=== PATIENT | female | born 1935 | race Caucasian/White ===

== ENCOUNTER 2016-05-17 22:30 | Observation (INO) | payer MEDICARE, BC ==
[2016-05-17] MEDS ORDERED: NS 1,000 ML IV ONE (22:55)
--- NOTE | 2016-05-17 22:57 | EDPRACDOC ---
- General Information Chief Complaint: Generalized Weakness Stated Complaint: STROKE Time Seen by Provider: 05/17/16 22:45 Information Source: Patient Mode Of Arrival: Ambulance Home Medications: Home Medications Amlodipine [Norvasc] 10 mg PO DAILY 03/08/14 Fenofibrate [Tricor] 145 mg PO DAILY 03/08/14 POTASSIUM CHLORIDE Tablet [K-DUR 20 mEq Tablet*] 20 meq PO QHS 03/08/14 Rosuvastatin Calcium [Crestor] 10 mg PO QHS 03/08/14 Omeprazole Magnesium [Prilosec Otc] 20 mg PO DAILY 12/05/14 Donepezil HCl [Aricept] 5 mg PO DAILY 05/18/16 Doxycycline Hyclate [Morgidox] 100 mg PO .[id number] 05/18/16 Sertraline HCl [Zoloft] 25 mg PO DAILY 05/18/16 Allergies/Adverse Reactions: Allergies Allergy/AdvReac Type Severity Reaction Status Date / Time Penicillins Allergy Unknown Verified 05/18/16 11:30 - History of Present Illness Onset: 1 hour [employer] Exact Onset of Symptoms: Unknown Date Symptoms Started: 05/17/16 HPI: PATIENT STATES SHE HAS FELT WEAK ALL DAY. 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 UNKNOWN HOW LONG. ON WAKING SHE TRIED TO GET FAMILY AND COULD NOT WALK- COLLAPSED ONTO FAMILY. NO FEVER. NO N/V. COMPLAINS OF HEADACHE. DIARRHEA OVER LAST FEW DAYS Symptoms Started: Reports: Gradually Symptoms Description: Constant Weakness: Bilateral: Generalized Symptoms: Reports: Faintness, Syncope. Denies: Imbalance, Numbness Symptom Severity: Reports: Unable to performs ADL's Associated signs and symptoms:: Reports: Diarrhea ED Past Medical History - History Reviewed Yes Nurses notes reviewed and agree except as marked Travel Outside of [place] in the Last 3 Months?: No - Patient Medical History Neurological History: Reports: Dementia Cardiac History: Reports: Hypertension, Hypercholesterolemia GI/ History: Reports: Ulcer Musculoskeletal History: Reports: Arthritis (bilateral knees) Psychological History: Denies: Depression Systemic History: Reports: Anemia, Diabetes (diet controlled). Denies: Cancer Surgical History: Reports: Hysterectomy - Family Medical History Reports: Cancer (Father -lung), Cardiac Disorders (Mother). Denies: Hypertension, Stroke - Social Medical History Smoking Status: Never smoker ETOH: None Substance Abuse: None Lives With: Family Lives In: Home EDM Review of Systems - Review of Systems ROS Negative Except as Marked: Yes All systems reviewed and were negative except as marked Constitutional: No Symptoms Reported. negative: Fever, Chills, Weakness, Fatigue, Loss of Appetite Eyes: No Symptoms Reported. negative: Redness, Blurred Vision, Double Vision, Discharge, Pain, Light Sensitive, Photophobia Ears: No Symptoms Reported. negative: Pain, Hearing Loss, Drainage, Ear Pulling Throat: No Symptoms Reported. negative: Pain, Swelling Nose: No Symptoms Reported. negative: Congestion, Bleeding, Discharge, Injection, Swelling, Deformity, Ecchymosis, Tender, Abrasion, Laceration Mouth: No Symptoms Reported. negative: Pain, Drooling Respiratory: No Symptoms Reported. negative: Cough, Brassy Cough, Barky Cough, Shortness of Breath, Wheezing, Hemoptysis Cardiovascular: Syncope. negative: Chest Pain, Cyanosis, Edema, Orthopnea, Palpitations, PND, Skin Mottling Gastrointestinal: No Symptoms Reported. negative: Pain, Constipation, Nausea, Vomiting, Diarrhea, Melena, Formula Intolerance Genitourinary: No Symptoms Reported. negative: Dysuria, Hematuria, Frequency, Discharge, Bleeding, Testicular Pain, Neurological: No Symptoms Reported. negative: Headache, Dizziness, Seizure, Numbness, Weakness, Speech Difficulty, Gait Difficulty Musculoskeletal: No Symptoms Reported. negative: Neck, Chestwall, Ribs, Back, Shoulder, Arm, Elbow, Forearm, Wrist, Hand, Pelvis, Hip, Femur, Knee, Leg, Ankle , Foot Integumentary: No Symptoms Reported. negative: Itching, Rash, Bruising, Wound Allergic/Immunologic: No Symptoms Reported. negative: Hives, Itching Hematologic: No Symptoms Reported. negative: Lymphadenopathy, Easy Bruising, Easy Bleeding Endocrine: No Symptoms Reported. negative: Weight Gain, Weight Loss Psychiatric: No Symptoms Reported. negative: Anxiety, Depression, Hallucinations, Insomnia, Suicidal - Physical Exam Constitutional: Alert (Awake), Distress (MILD) Oriented to: Time, Person, Place Last recorded Vital Signs: Last Vital Signs Temp 97.5 F 05/17/16 22:34 Pulse 65 05/17/16 22:34 Resp 20 05/17/16 22:34 BP 173/77 05/17/16 22:34 Pulse Ox 99 05/17/16 22:34 Oxygen Pulse Oxygen Saturation 99 O2 Device Room Air Oxygen Flow Rate Fraction of Inspired Oxygen ( FIO2) - HEENT Head: Normal ( normocephalic) Eye Exam: Normal (PERRL, EOMI, Sclera white) Oropharynx: Normal (Pharynx:Moist without exudate,Gums-no swelling) Tympanic Membrane: Normal ENT EAC: Normal TMJ: Normal Nose: No Symptoms Reported (septum midline) Neck: Normal (FROM, trachea at midline) - Respiratory/Cardiovascular Respiratory: Normal - CTA (BBS clear to auscultation without adventitious sounds ) Cardiovascular: Normal (RRR without murmur, gallop or rub) - GI Auscultation: Normal (NABS) Palpation: Normal (Soft,No rebound or guarding, non distended) Tenderness: Non tender Morse's Sign: Negative - Musculoskeletal Back: Normal (Non-Tender) Extremities: Normal (Normal tone, Pulses 2+ No cyanosis or edema, FROM) - Integumentary Skin: Normal, Warm, Dry Lymphatics: Normal (no adenopathy) - Neurologic Memory Impaired: Normal Motor Function: Normal (Normal tone, Pulses 2+ No cyanosis or edema, FROM) Cranial Nerve: Normal (CN II-X11 intact sensation, strength 5/5) Cerebellar: Normal Mood Description: Normal Perception: Normal - Results 05/19/16 05:25 05/19/16 05:25 - EKG EKG #1 EKG Time: 23:17 -: Yes EKG interpreted by me Rate: bpm: 73 Powell: Normal Rhythm: NSR, PVCs Block: None Hypertrophy: None ST: Normal - Departure Yes I personally saw and evaluated the patient. Disposition: Admit IP To This Hospital Condition: Improved Final Diagnosis: Dehydration Syncope Qualifiers: Syncope type: unspecified Qualified Code(s): R55 - Syncope and collapse Diarrhea Qualifiers: Diarrhea type: presumed infectious Qualified Code(s): A09 - Infectious gastroenteritis and colitis, unspecified Education/Counseling Given To: Patient, Family Member Education/Counseling Given Regarding: Diagnosis, Treatment, Prognosis Decision to Admit Time: 16:30 Decision to admit date: 05/19/16 Decision to admit: from ED
[2016-05-17 23:10] LABS: AUTOMATED EOSINOPHIL 0.8 % (0-5); AUTOMATED LYMPH 28.4 % (17-44); AUTOMATED MONOCYTE 6.8 % (3-10)
[2016-05-17 23:23] LABS: BLOOD UREA NITROGEN 23 MG/DL (7-17); CALCIUM 9.1 MG/DL (8.4-10.2); CALCULATED OSMOLALITY 271 MOs/Kg (270-290); CHLORIDE 105 mEq/L (98-107); GLUCOSE 123 MG/DL (70-99); PARTIAL THROMB. TIME 21.8 SEC (22-35); PT-INR 1.1; SODIUM LEVEL 138 mEq/L (137-146); TOTAL PROTEIN 6.7 G/DL (6.3-8.2)
--- NOTE | 2016-05-17 23:41 | DIRPT ---
CLINICAL DATA: Acute onset of shortness of breath, weakness, nausea and headache. Initial encounter. EXAM: PORTABLE CHEST 1 VIEW COMPARISON: Chest radiograph performed 03/19/2014 FINDINGS: The lungs are well-aerated. Minimal bilateral atelectasis or scarring is noted. There is no evidence of pleural effusion or pneumothorax. The cardiomediastinal silhouette is within normal limits. No acute osseous abnormalities are seen. IMPRESSION: Minimal bilateral atelectasis or scarring noted. Lungs otherwise clear. Electronically Signed By: Med Wang M.D. On: 05/17/2016 23:39
[2016-05-17 23:44] LABS: LEUKOCYTES/URINE NEG (NEGATIVE); NITRITE/URINE NEG (NEGATIVE); URINE OCCULT BLOOD NEG (NEG/TRACE)
[2016-05-18] MEDS ORDERED: NS 1,000 ML IV ONE (00:03)
--- NOTE | 2016-05-18 00:07 | DIRPT ---
CLINICAL DATA: Patient status post fall. Weakness, nausea and chills. No reported loss consciousness. EXAM: CT HEAD WITHOUT CONTRAST TECHNIQUE: Contiguous axial images were obtained from the base of the skull through the vertex without intravenous contrast. COMPARISON: Brain CT 04/12/2016. FINDINGS: Ventricles and sulci are appropriate for patient's age. No evidence for acute cortically based infarct, intracranial hemorrhage, mass lesion or mass effect. Orbits are unremarkable. Paranasal sinuses are well aerated. Mastoid air cells are unremarkable. Calvarium is intact. IMPRESSION: No acute intracranial process. Electronically Signed By: Neel Kerr M.D. On: 05/18/2016 00:05
--- NOTE | 2016-05-18 01:13 | HISTPHYS ---
- Chief Complaint passed out - History of Present Illness PRIMARY CARE PROVIDER: Dr. 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 Last night she was fine and she ate dinner, then after she went to the bathroom , she passed out and lost consciousness. She fell onto her bed. She was completely unconscious, but then after an unknown amount of time she awakened. She crawled on the bed to reach the phone. She lost control of her bladder ( which she has been doing lately). Then she tried to get up, but she felt like she was drunk, and was wobbly. Then she tried to walk again and fell into the arms of her relative. She did not hit her head. She reports she drinks lots of water. Onset: last night (several hours ago). Duration: intermittent. Character: complete loss of consciousness. Alleviated by: Nothing. Exacerbated by: Nothing. Associated Symptoms: Balance was off. Vertigo: room is spinning, but it was not like that previously. The patient has a history of vertigo. No chest pain or palpitations. Very brief numbness in left hand but resolved almost immediately. Moment of confusion when she first woke up. No focal weakness. No headache until later. No dysphagia. Had severe diarrhea all day 2 days ago, then just 1 episode yesterday. Treatments: none at home except usual medications. - Medical History Cardiac History: Reports: Hypertension, Hypercholesterolemia GI/ History: Reports: Ulcer (severe ulcer. Surgical treatment by Dr. Panchal.) Musculoskeletal History: Reports: Arthritis (bilateral knees) Systemic History: Reports: Anemia. Denies: Cancer, Diabetes (Resolved.) Neurological History: Reports: Dementia, Other (NEURO-SYPHILLIS DIAGNOSED 2015.) Psychological History: Denies: Depression - Surgical History Reports: Hysterectomy, Other (Abdominal surgery for hiatal hernia by Dr. Panchal.) - Medictions/Allergies Allergies Penicillins Allergy (Verified 05/17/16 22:37) Rash-Generalized Current Medication List: Reviewed Home Medications Amlodipine [Norvasc] 10 mg PO DAILY 03/08/14 Cholecalciferol (Vitamin D3) [Vitamin D3 (cholecalciferol)] 2,000 units PO DAILY 03/08/14 Fenofibrate [Tricor] 145 mg PO DAILY 03/08/14 POTASSIUM CHLORIDE Tablet [K-DUR 20 mEq Tablet*] 20 meq PO QHS 03/08/14 Rosuvastatin Calcium [Crestor] 10 mg PO QHS 03/08/14 Omeprazole Magnesium [Prilosec Otc] 20 mg PO DAILY 12/05/14 Calcium Carbonate [Calcium] 600 mg PO DAILY 08/05/15 Vitamin E 800 unit PO QHS 04/12/16 - Family History Reports: Cancer (Father -lung), Cardiac Disorders (Mother). Denies: Hypertension, Stroke - Social History Smoking Status: Never smoker Social History: Denies: Alcohol Use, Substance Use Disorder - Review of Systems GENERAL: No Fever, chills, or diaphoresis. Positive for fatigue/malaise. HEENT: No ear pain or discharge. No nasal discharge or bleeding. No throat pain or swelling. No eye pain or eye redness. RESPIRATORY: No cough, wheezing, or shortness of breath. CARDIOVASCULAR: No chest pain or palpitations. GI: Had severe diarrhea all day 2 days ago, then just 1 episode yesterday. No abdominal pain, nausea, vomiting, constipation, or bloody stool. NEUROLOGICAL: Headache and dizziness. No focal weakness. INTEGUMENT: no rashes, itching, or lesions. LYMPHATIC SYSTEM: no lymph node swelling or pain. MUSCULOSKELETAL: no new pain or joint swelling. GENITOURINARY: No dysuria or hematuria. ENDOCRINE: No polyuria or polydipsia. HEME: No chronic anemia, bleeding, or easy bruising. - Physical Exam Vital Signs: Initial Vitals Temperature 97.5 F 05/17/16 22:34 Pulse Rate 65 05/17/16 22:34 Respiratory Rate 20 05/17/16 22:34 Blood Pressure 173/77 05/17/16 22:34 Pulse Oxygen Saturation 99 05/17/16 22:34 Weight: 54.4 kg Height: 5 feet 5 inches BMI: 20 - Other Exam Other Exam Findings: GENERAL: Ill-appearing, well nourished, no acute distress. HEENT: Normocephalic, atraumatic; pupils equal and round. Nares patent, without discharge or bleeding. No oropharyngeal lesions or erythema. Mucous membranes are dry. NECK: is supple, no masses, trachea midline. RESPIRATORY: Clear to auscultation bilaterally. Chest wall movements are symmetric. No use of accessory muscles to breathe. No wheezing, rales, rhonchi. CARDIOVASCULAR: Normal S1, S2. No rubs, or gallops. PMI non-displaced. Carotids : no carotid bruits. No bradycardia or tachycardia. DP pulses 2+ bilaterally. GI: soft, non-distended, normal active bowel sounds. No hepatosplenomegaly. Mild lower abdominal tenderness (patient states this is chronic and unchanged). INTEGUMENT: Clean, dry, and intact. No rashes. MUSCULOSKELETAL: Moving all extremities. No cyanosis. No clubbing. Edema: none bilaterally. NEUROLOGICAL: Cranial nerves 2-12 grossly intact. Motor 4/5 throughout. Reflexes : 2+ bilaterally. Babinski: toes downgoing bilaterally. Intact Finger to nose. Sensory grossly intact to light touch. Intact rapid alternating movements bilaterally. No pronator drift. PSYCHIATRIC: Fully oriented. Normal and appropriate affect. LYMPHATIC: No cervical lymphadenopathy. No supraclavicular lymphadenopathy. - Lab Results Laboratory Tests 05/17/16 05/17/16 05/17/16 22:50 22:50 22:50 WBC 11.7 H RBC 4.38 Hgb 11.5 L Hct 35.6 L MCV 81 MCH 26.2 L MCHC 32.2 L RDW 15.1 H Plt Count 341 MPV 8.0 Neut % (Auto) 63.0 Lymph % (Auto) 28.4 [place] % (Auto) 6.8 Eos % (Auto) 0.8 Baso % (Auto) 1.0 Absolute Neuts (auto) 7.37 Absolute Lymphs (auto) 3.28 PT 11.3 H INR 1.1 APTT 21.8 L Sodium 138 Potassium 3.7 Chloride 105 Carbon Dioxide 17 L Anion Gap 20 H BUN 23 H Creatinine 0.70 Estimated GFR (MDRD) > 60 Glucose 123 H Calculated Osmolality 271 Lactic Acid Calcium 9.1 Total Bilirubin 0.4 AST 27 ALT 25 Alkaline Phosphatase 54 L Troponin I < 0.01 Total Protein 6.7 Albumin 4.0 Urine Color Urine Clarity Urine pH Ur Specific [place] Urine Protein Urine Glucose (UA) Urine Ketones Urine Occult Blood Urine Nitrite Urine Bilirubin Urine Urobilinogen Ur Leukocyte Esterase Urine RBC Urine WBC Ur Epithelial Cells Urine Bacteria Urine Mucus 05/17/16 05/17/16 22:50 23:20 WBC RBC Hgb Hct MCV MCH MCHC RDW Plt Count MPV Neut % (Auto) Lymph % (Auto) [place] % (Auto) Eos % (Auto) Baso % (Auto) Absolute Neuts (auto) Absolute Lymphs (auto) PT INR APTT Sodium Potassium Chloride Carbon Dioxide Anion Gap BUN Creatinine Estimated GFR (MDRD) Glucose Calculated Osmolality Lactic Acid 2.0 Calcium Total Bilirubin AST ALT Alkaline Phosphatase Troponin I Total Protein Albumin Urine Color Pale yellow Urine Clarity Sl cldy Urine pH 8.0 Ur Specific [place] 1.005 Urine Protein Neg Urine Glucose (UA) Trace Urine Ketones 1+ H Urine Occult Blood Neg Urine Nitrite Neg Urine Bilirubin Neg Urine Urobilinogen <2.0 Ur Leukocyte Esterase Neg Urine RBC 2-5 Urine WBC 5-10 H Ur Epithelial Cells 1+ Urine Bacteria Few Urine Mucus Occ - Diagnostic Findings EKG: Her 73 beats per minute. Sinus rhythm with occasional PVCs. Cannot rule out anterior infarct, age undetermined. T-wave abnormality, consider inferior ischemia. T-wave inversion in lead 3. Flat T-wave in lead AVF and V5. Reviewed EKG personally. Chest x-ray, viewed personally: EXAM: PORTABLE CHEST 1 VIEW COMPARISON: Chest radiograph performed 03/19/2014 FINDINGS: The lungs are well-aerated. Minimal bilateral atelectasis or scarring is noted. There is no evidence of pleural effusion or pneumothorax. The cardiomediastinal silhouette is within normal limits. No acute osseous abnormalities are seen. IMPRESSION: Minimal bilateral atelectasis or scarring noted. Lungs otherwise clear. Head CT: EXAM: CT HEAD WITHOUT CONTRAST TECHNIQUE: Contiguous axial images were obtained from the base of the skull through the vertex without intravenous contrast. COMPARISON: Brain CT 04/12/2016. FINDINGS: Ventricles and sulci are appropriate for patient's age. No evidence for acute cortically based infarct, intracranial hemorrhage, mass lesion or mass effect. Orbits are unremarkable. Paranasal sinuses are well aerated. Mastoid air cells are unremarkable. Calvarium is intact. IMPRESSION: No acute intracranial process. - Assessment (1) Syncope R55 - SYNCOPE AND COLLAPSE Acute Present on Admission: Yes Qualifiers: Syncope type: unspecified Qualified Code(s): R55 - Syncope and collapse Suspect syncope was due to combination of vasovagal episode and dehydration from recent diarrhea. She does have a recent diagnosis of neurosyphillis, although the diagnosis may not yet be confirmed. Plan: Telemetry. Ultrasound of carotids in am. Neuro checks. (2) Dehydration E86.0 - DEHYDRATION Acute Present on Admission: Yes Plan: Trial of IVFs. (3) Dizziness R42 - DIZZINESS AND GIDDINESS Acute Present on Admission: Yes Patient reports she has frequent vertigo. Dizziness may be secondary to her dehydration or to vertigo. Plan: Monitor. Consider meclizine. (4) Acute infectious diarrhea A09 - INFECTIOUS GASTROENTERITIS AND COLITIS, UNSPECIFIED Acute Present on Admission: Yes Seems to be resolving. Plan: If she has further diarrhea, will send for culture and c diff. Case Care Discussed with: Patient, Nursing Staff Total Time: 60 min
[2016-05-18] MEDS ORDERED: PROMETHAZINE 25 MG/ML VIAL IV PRN (03:01)
[2016-05-18] MEDS ORDERED: BISACODYL 5 MG TAB PO PRN (03:01)
[2016-05-18] MEDS ORDERED: ONDANSETRON HCL 4 MG/2 ML VIAL IV PRN (03:01)
[2016-05-18] MEDS ORDERED: BENZONATATE 100 MG PERLES PO PRN (03:01)
[2016-05-18] MEDS ORDERED: SENNA CONCENTRATE TAB PO PRN (03:01)
[2016-05-18] MEDS ORDERED: TEMAZEPAM 15 MG CAP PO PRN (03:01)
[2016-05-18] MEDS ORDERED: GUAIFEN 100 MG-DEXTROMETH 10 MG PER 5 ML PO PRN (03:01)
[2016-05-18] MEDS ORDERED: Aluminum;Magnesium;Simethicone 30 ML UDC PO PRN (03:01)
[2016-05-18] MEDS ORDERED: ACETAMINOPHEN 325 MG SUPP PR PRN (03:01)
[2016-05-18] MEDS ORDERED: Magnesium Sulfate 2 gm/D5W 2 GM/50 ML RTU IV ONE (03:02)
[2016-05-18] MEDS: ACETAMINOPHEN 325 MG/TAB TABLET PO PRN ×2 (03:06→08:35)
[2016-05-18] MEDS: NS/KCl 20 mEq 1,000 ML IV SCH ×3 (03:31→20:18)
[2016-05-18] MEDS ORDERED: Vaccine Screening Complete SCH (04:00)
[2016-05-18] MEDS ORDERED: MECLIZINE 12.5 MG TAB PO PRN (05:51)
[2016-05-18 06:55] VITALS: BMI 18.8
--- NOTE | 2016-05-18 10:20 | DIRPT ---
CLINICAL DATA: Dizziness and syncope EXAM: BILATERAL CAROTID DUPLEX ULTRASOUND TECHNIQUE: Miller scale imaging, color Doppler and duplex ultrasound were performed of bilateral carotid and vertebral arteries in the neck. COMPARISON: None. FINDINGS: Criteria: Quantification of carotid stenosis is based on velocity parameters that correlate the residual internal carotid diameter with NASCET-based stenosis levels, using the diameter of the distal internal carotid lumen as the denominator for stenosis measurement. The following velocity measurements were obtained: RIGHT ICA: 110 cm/sec CCA: 189 cm/sec SYSTOLIC ICA/CCA RATIO: 0.6 DIASTOLIC ICA/CCA RATIO: 1.6 ECA: 117 cm/sec LEFT ICA: 87 cm/sec CCA: 95 cm/sec SYSTOLIC ICA/CCA RATIO: 0.9 DIASTOLIC ICA/CCA RATIO: 0.8 ECA: 82 cm/sec RIGHT CAROTID ARTERY: Mild plaque in the upper common carotid. Little if any plaque in the bulb. Scattered minimal plaque in the internal carotid. Low resistance internal carotid Doppler pattern. RIGHT VERTEBRAL ARTERY: Antegrade with a normal Doppler pattern. LEFT CAROTID ARTERY: Minimal plaque in the common carotid and bulb. Minimal plaque in the internal carotid. Low resistance internal carotid Doppler pattern. LEFT VERTEBRAL ARTERY: Antegrade with a normal Doppler pattern. IMPRESSION: Less than 50% stenosis in the right and left internal carotid arteries. Electronically Signed By: Irineo Oglesby M.D. On: 05/18/2016 10:17
[2016-05-18] MEDS ORDERED: DOXYCYCLINE HYCLATE 100 MG PO SCH (13:15)
[2016-05-18] MEDS ORDERED: ENOXAPARIN 40 MG/0.4 ML PFS SQ SCH (14:00)
[2016-05-18] MEDS ORDERED: POTASSIUM CHLORIDE 20 MEQ TAB PO SCH (21:00)
[2016-05-18] MEDS ORDERED: Non-Formulary Medication ITEM (Rosuvastatin Calcium [Crestor] 10 MG) PO SCH (21:00)
[2016-05-18] MEDS ORDERED: ROSUVASTATIN 10 MG TAB PO SCH (21:00)
[2016-05-18] MEDS: DOXYCYCLINE 100 MG/TAB PO SCH (21:02)
[2016-05-19] MEDS: NS/KCl 20 mEq 1,000 ML IV SCH (04:16)
[2016-05-19] MEDS ORDERED: PANTOPRAZOLE 40 MG TAB PO SCH (06:00)
[2016-05-19 06:05] LABS: MPV 8.5 fL (7.4-10.4)
[2016-05-19 06:06] LABS: BLOOD UREA NITROGEN 10 MG/DL (7-17); CALCIUM 9.1 MG/DL (8.4-10.2); CALCULATED OSMOLALITY 266 MOs/Kg (270-290); CHLORIDE 111 mEq/L (98-107); GLUCOSE 77 MG/DL (70-99); SODIUM LEVEL 139 mEq/L (137-146)
[2016-05-19] MEDS ORDERED: AMLODIPINE 10 MG TAB PO SCH (09:00)
[2016-05-19] MEDS ORDERED: SERTRALINE HCL 25 MG TAB PO SCH (09:00)
[2016-05-19] MEDS ORDERED: DONEPEZIL HCL 5 MG TAB PO SCH (09:00)
[2016-05-19] MEDS ORDERED: Non-Formulary Medication ITEM (Omeprazole Magnesium [Prilosec Otc] 20 MG) PO SCH (09:00)
[2016-05-19] MEDS ORDERED: FENOFIBRATE 145 MG TAB PO SCH (09:00)
[2016-05-19] MEDS: DOXYCYCLINE 100 MG/TAB PO SCH (09:03)
--- NOTE | 2016-05-19 09:05 | PCM.DCS92 ---
- Final/Secondary Discharge Diagnosis (1) Syncope Acute R55 - SYNCOPE AND COLLAPSE Present on Admission: Yes unspecified R55 - Syncope and collapse Comment: Carotids within normal limits. Likely due to dehydration vasovagal event in combination with vertigo. She has been ambulating in the halls is been asymptomatic since admission. Stable at this point for discharge home and close follow-up with primary physician (2) Dehydration Acute E86.0 - DEHYDRATION Present on Admission: Yes Comment: Resolved with IV fluids. (3) Diarrhea Acute R19.7 - DIARRHEA, UNSPECIFIED Present on Admission: Yes presumed infectious A09 - Infectious gastroenteritis and colitis, unspecified Comment: Resolved. No further diarrhea since admission. (4) Dizziness Acute R42 - DIZZINESS AND GIDDINESS Present on Admission: Yes Comment: Chronic problem from vertigo. (5) Hypokalemia Acute E87.6 - HYPOKALEMIA Present on Admission: Yes Comment: Repleted. Currently 4.4 Discharge Disposition: Discharge w/ Home Health (physical therapy) Discharge Condition: Improved Cognitive Discharge Status: Unimpaired Fuctional Discharge Status: Independent, Fall Risk Physician Follow up/Referrals: Lucas Casillas MD [Primary Care Provider] - One Week (call office for appointment ) Discharge Home Medication List Amlodipine [Norvasc] 10 mg PO DAILY 03/08/14 [History Confirmed 05/18/16 Last Taken 04/12/16] Fenofibrate [Tricor] 145 mg PO DAILY 03/08/14 [History Confirmed 05/18/16 Last Taken 04/12/16] POTASSIUM CHLORIDE Tablet [K-DUR 20 mEq Tablet*] 20 meq PO QHS 03/08/14 [ History Confirmed 05/18/16 Last Taken 04/11/16] Rosuvastatin Calcium [Crestor] 10 mg PO QHS 03/08/14 [History Confirmed Last Taken 04/11/16] Omeprazole Magnesium [Prilosec Otc] 20 mg PO DAILY 12/05/14 [History Confirmed 05/18/16 Last Taken 04/12/16] Donepezil HCl [Aricept] 5 mg PO DAILY 05/18/16 [History Confirmed 05/18/16 Last Taken Unknown] Doxycycline Hyclate [Morgidox] 100 mg PO .[id number] 05/18/16 [History Confirmed 05/18/16 Last Taken Unknown] Sertraline HCl [Zoloft] 25 mg PO DAILY 05/18/16 [History Confirmed 05/18/16 Last Taken Unknown] O2 Device: Room Air Diet at Discharge: Heart Healthy Activity: As Tolerated Call Office For: Worsening Symptoms - DC Summary Notes Hospital Course Note:: Discharge summary on patient named MICHELL QUINONES admitted to [facility] on 05/18/16 by Victor Manuel Eli MD. Date of discharge is []. Ms. Quinones is a pleasant 80-year-old white female with history of falls, vertigo, and recent diagnosis of neurosyphilis. She presented to the emergency room with a syncopal event. She apparently went into the bathroom felt weak lost consciousness. She subsequently crawled to her bed and went to sleep. She then reach the phone to call for help. She apparently has had some ambulatory difficulty and episodes of urinary incontinence. She had recent episode of severe diarrhea. In the emergency room neuro exam was within normal limits and evaluation was benign except for mild dehydration she was admitted to the hospital for observation and IV hydration. Since admission she has been asymptomatic and feeling well. She has been up ambulating in the halls with no further episodes. Telemetry has been negative and carotid Dopplers were negative as well. At this point symptoms were felt to be vasovagal in nature likely related to dehydration and vertigo. This point she has reached maximal hospital benefit and is stable for discharge home. She is to follow up with her primary physician in the next week. Total Time: 45 minutes - Physical Exam Vital Signs: Last Vital Signs Temp 98.0 F 05/19/16 08:00 Pulse 81 05/19/16 08:00 Resp 20 05/19/16 08:00 BP 153/65 05/19/16 08:00 Pulse Ox 98 05/18/16 16:00 Oxygen Pulse Oxygen Saturation 98 O2 Device Room Air Oxygen Flow Rate Fraction of Inspired Oxygen ( FIO2) Constitutional: No apparent distress, Alert (Awake), Well nourished, Well appearing Oriented to: Time, Person, Place - HEENT Head: Normal ( normocephalic) Eye: Normal (PERRL, EOMI, Sclera white) Oropharynx: Normal (Pharynx:Moist without exudate,Gums-no swelling) Tympanic Membrane: Normal ENT EAC: Normal TMJ: Normal Nose: No Symptoms Reported (septum midline) - Respiratory/Cardiovascular Respiratory: Normal - CTA (BBS clear to auscultation without adventitious sounds ) Cardiovascular: Normal (RRR without murmur, gallop or rub) - GI Auscultation: Normal (NABS) Palpation: Normal (Soft,No rebound or guarding, non distended) Tenderness: Non tender Morse's Sign: Negative - Musculoskeletal Back: Normal (Non-Tender) Extremities: Normal (Normal tone, Pulses 2+ No cyanosis or edema, FROM) - Integumentary Skin: Normal, Warm, Dry Lymphatics: Normal (no adenopathy) - Neurologic Memory Impaired: Normal Motor Function: Normal Cranial Nerve: Normal Cerebellar: Normal Mood Description: Normal Perception: Normal
[2016-05-19 14:24] VITALS: BP 136/66; PULSE 86; TEMP 98.2
== END 2016-05-19 13:58 | disposition home health service (06) ==
LOC: ED 22:30 → ICU 05-18 01:09
PROVIDERS: ADMIT Internal Medicine; ATTEND Hospitalist
DX: R55 Syncope and collapse (principal); E86.0 Dehydration; R42 Dizziness and giddiness; R19.7 Diarrhea, unspecified; E87.6 Hypokalemia; I10 Essential (primary) hypertension; E78.00 Pure hypercholesterolemia, unspecified; E11.9 Type 2 diabetes mellitus without complications; Z79.899 Other long term (current) drug therapy
CPT/HCPCS: 36415; 70450; 71010; 80048; 80053; 81001; 83605; 83735; 84484; 85025; 85027; 85610; 85730; 87040; 87086; 87641; 87804; 93005; 93880; 96360; 96361; 96372; 97162; 99284; A9270; G0378; G8978; G8979; J1650; J3475; J7040; J3490